=== PATIENT | male | born 1995 | race Two or more races ===

== ENCOUNTER 2024-12-06 19:24 | Emergency (ER) | payer MEDICAID, SELFPAY ==
[2024-12-06 19:25] VITALS: BMI 25.6
[2024-12-06 19:43] VITALS: BP 141/76; PULSE 87; RESP 18; TEMP 36.9; O2SAT 99
--- NOTE | 2024-12-06 19:54 | PD.EDRME ---
Rapid Medical Screening Exam RME Arrival date/time: 12/06/24 19:24 29-year-old male presents emergency department complaining of hematemesis that started earlier today. Patient reports is occasional drinker. Chief Complaint: Nausea/Vomiting/Diarrhea Time Seen by Provider: 12/06/24 19:46 Vital signs: Vital Signs Temperature 98.5 F 12/06/24 19:43 Pulse Rate 87 12/06/24 19:43 Respiratory Rate 18 12/06/24 19:43 Blood Pressure 141/76 H 12/06/24 19:43 Pulse Oximetry (%) 99 12/06/24 19:43 Oxygen Delivery Method Room Air 12/06/24 19:43 Vital signs reviewed by provider: Yes
--- NOTE | 2024-12-06 21:00 | EDNOTE_ITS ---
ED General RME/HPI General Chief complaint: Nausea/Vomiting/Diarrhea Stated complaint: VOMITING BLOOD X TODAY Time Seen by Provider: 12/06/24 19:46 Arrival date/time: 12/06/24 19:24 CC: Bright red vomitus HPI ongoing since 7 AM this morning multiple episodes patient denies any diarrhea black stools or bloody stools no prior history of same complaints. Patient states he is an occasional alcohol drinker no prior history of similar events states he has typical pain in the abdomen when vomiting but no persistent pain throughout the abdomen when not vomiting. Patient denies back pain shortness of breath fever chills. RME / HPI RME / HPI narrative: 12/06/24 19:24 29-year-old male presents emergency department complaining of hematemesis that started earlier today. Patient reports is occasional drinker. Related Data Previous Rx's ?Medication ?Instructions ?Recorded diphenhydramine HCl 25 mg capsule 25 mg PO TID #20 cap s 11/25/18 (Benadryl) methylprednisolone 4 mg tablets in 4 mg PO DAILY #21 t abs 11/25/18 a dose pack (Medrol (Angel)) famotidine 20 mg tablet 20 mg PO QDAY #30 tabs 12/06 ondansetron 4 mg disintegrating 4 mg PO Q8H #10 tabs 0 12/06/24 tablet Allergies Allergy/AdvReac Type Severity Reaction Status Date / Time No Known Allergies Allergy Verified 12/06/24 19:30 Review of Systems Review of Systems Narrative Review of Systems: GEN: No fever, no chills, no weight loss EYES: No discharge, no visual changes, no pain HEENT: No ear pain, no congestion, no sore throat PULM: No shortness of breath, no cough, no congestion CV: No chest pain, no dyspnea on exertion, no palpitations GI: + nausea, + vomiting, no diarrhea, no pain, no constipation : No frequency, no urgency, no dysuria MUSC/SKEL: No joint pain, no back pain SKIN: No rash PSYCH: No hallucinations, no depression HEME/LYMPH: No easy bleeding or bruising tendencies NEURO: No weakness, no headache Past Medical History Past Medical History CARDIAC: Negative Congestive Heart Failure RESPIRATORY: Negative Chronic Obstructive Pulmonary Disease (COPD) GENITOURINARY: Negative Renal Disease ENDOCRINE: Negative Diabetes Mellitus Type 1 or Diabetes Mellitus Type 2 Social History SMOKING STATUS: Current some day smoker ED Exam Narrative Physical exam: [General: In mild discomfort but not in any acute distress Head normocephalic HEENT: Within acceptable limits Neck is supple nontender Chest equal chest rise nontender to palpation Respiratory: Clear to auscultation no wheezes crackles or rubs CV: Rate rhythm is regular no murmurs rubs or clicks Abdomen is soft nontender no masses positive bowel sounds all 4 quadrants Back: No CVA tenderness no spinous process tenderness from cervical spine thoracic and lumbar spine Skin: Intact no petechiae rash induration ulceration or crepitus Extremities: Moving all extremity against resistance cap refill less than 2 seconds neurosensory intact Neuro: Awake alert oriented x3 Glascow coma 15 no focal deficits] Course Quality Measures none Orders Category Date Time Status Saline [Insert IV] NOW Care 12/06/24 20:[address] abdomen pelvis wo con Stat Exams 12/06/24 21:11 Completed Alcohol, Blood Medical Stat Lab 12/06/24 20:38 Completed CBC Stat Lab 12/06/24 20:38 Completed CMP [Comprehensive Metabolic Panel] Stat Lab 12/06/24 20:38 Completed Drug Screen,Urine Stat Lab 12/06/24 22:14 Received Lipase Stat Lab 12/06/24 20:38 Completed PT [Prothrombin Time with INR] Stat Lab 12/06/24 20:38 Completed PTT [Partial Thromboplastin Time] Stat Lab 12/06/24 20:38 Completed Urinalysis, C/S if Indicated Stat Lab 12/06/24 22:14 Completed Famotidine Inj [Pepcid Inj] Med 12/06/24 20:59 Discontinued 20 mg IVP X1 ONE Metoclopramide Inj [Reglan Inj] Med 12/06/24 19:54 Discontinued 10 mg IM X1 ONE Ondansetron Inj [Zofran Inj] Med 12/06/24 21:10 Discontinued 4 mg IV X1 ONE Ringers Lactated 1000 ml [Lactated Ringers] 1,000 ml Med 12/06/24 21:00 Discontinued IV 999 mls/hr Vital Signs Vital signs: Vital Signs Temperature 98.5 F 12/06/24 19:43 Pulse Rate 87 12/06/24 19:43 Respiratory Rate 18 12/06/24 19:43 Blood Pressure 141/76 H 12/06/24 19:43 Pulse Oximetry (%) 99 02/17/25 19:43 Oxygen Delivery Method Room Air 12/06/24 19:43 [facility] Patient data External records reviewed:: [facility] previous records Clinical information provided by:: patient Social determinants that could affect healthcare access:: none Patient has the following chronic illnesses:: None How is presenting disease/condition affected by chronic disease/condition?: u neffected by Evaluation data The following diagnostics were reviewed and interpreted by me:: lab results and radiology exam(s) Lab and/or radiology exams considered but not ordered:: EKG performed at 8 shows ventricular rate of 107 MN interval 132 QRS of 89 QTc 361 is sinus tachycardia. CBC shows a mild leukocytosis of 14.5 hemoglobin of 16.8 hematocrit of 48.8% Coags within acceptable limits CMP is no acute electrolyte imbalances renal impairment transaminitis or T. bili elevation. Lipase is normal urine is unremarkable CT of the abdomen is negative for any acute finding. Interpretation Summary: Patient has had no episodes of vomiting throughout his visit the emergency room and his H&H are normal. At this time patient be discharged home on famotidine and he is to stick to a bland diet if there is a worsening of symptoms he can follow-up with his primary care provider. Medications Medications considered but not ordered:: None Medication administrations:: Medication Administration History Discontinued Medications Famotidine (Famotidine Inj 10 Mg/Ml Vial 2 Ml) 20 mg IVP X1 ONE Stop: 12/06/24 21:00 Last Admin: 12/06/24 21:15 Dose: 20 mg Documented By: EF Lactated Ringer's (Lactated Ringers) 1,000 mls @ 999 mls/hr IV .Q1H1M ONE Stop: 12/06/24 22:00 Last Admin: 12/06/24 21:15 Dose: 999 mls/hr Documented By: EF Metoclopramide HCl (Metoclopramide Inj 5 Mg/Ml Vial 2 Ml) 10 mg IM X1 ONE; Protocol Stop: 12/06/24 19:55 Last Admin: 12/06/24 21:27 Dose: Not Given Documented By: EF Non-Admin Reason: Cancelled by Provider Ondansetron HCl (Ondansetron Inj 2 Mg/Ml Inj 2 Ml) 4 mg IV X1 ONE; Protocol Stop: 12/06/24 21:11 Last Admin: 12/06/24 21:17 Dose: 4 mg Documented By: EF None Consultations Consultation(s) initiated? (list below): No Diagnosis Differential Diagnosis ED Complaint MDM: Hematochezia hematemesis anemia Most likely diagnosis given after review of the tests above:: Hematemesis Admission Indicated Admission indicated?: not indicated Explain why admission is indicated or not indicated:: Stable for outpatient follow-up Admission Request Was there a request for admission?: No Disposition Plan Disposition Plan: Discharge Discharge Attestation Discharge Attestation: The patient and all family members were given an opportunity to ask questions and understood the discharge instructions. Discharge instructions specifically effects, indications for sooner follow up or return to the emergency department, and the expected course of current diagnosis. Patient condition: Stable Medical Decision Making Differential Diagnosis Differential Diagnosis: Hematochezia hematemesis anemia Lab Data 12/06/24 20:38 12/06/24 20:38 Labs: Lab Results 12/06/24 12/06/24 Range/Units 20:38 22:14 WBC 14.5 H (3.8-10.6) Thou/mm3 RBC 5.68 (4.50-5.90) Miln/mm3 Hgb 16.8 H (13.5-16.0) g/dL Hct 48.8 (41.0-53.0) % MCV 86 (80-100) fL MCH 29.6 (25.0-35.0) pg MCHC 34.4 (31.0-37.0) g/dl RDW Std Deviation 45.4 H (35.1-43.9) fL Plt Count 207 (140-440) Thou/mm3 Neut % (Auto) 83 H (37-80) % Lymph % (Auto) 11 (10-50) % Archuleta % (Auto) 6 (0-12) % Eos % (Auto) 0 (0-10) % Baso % (Auto) 0 (0-2.5) % Neut # (Auto) 12.0 H (1.8-7.7) Thou/mm3 Lymph # (Auto) 1.5 (1.0-4.8) Thou/mm3 Archuleta # (Auto) 0.9 H (0.0-0.8) Thou/mm3 Eos # (Auto) 0.0 (0.0-0.5) Thou/mm3 Baso # (Auto) 0.1 (0.0-0.2) Thou/mm3 Immature Gran # (Auto) 0.04 H (0.00-0.00) Thou/mm3 Absolute Nucleated RBC 0.00 (0.00-0.00) Thou/mm3 Immature Gran % 0 (0-0) % Nucleated RBC % 0 (0) /100 WBC PT 11.7 (9.0-12.2) Seconds INR 1.1 (0.9-1.3) APTT 25.5 (22.0-36.0) Seconds Sodium 143 (136-145) mMol/L Potassium 3.6 (3.4-5.1) mMol/L Chloride 104 (98-107) mMol/L Carbon Dioxide 24.8 (20.0-31.0) mMol/L Anion Gap 14 (7-16) BUN 18 (9-23) mg/dL Creatinine 1.1 (0.6-1.3) mg/dL Estim Creat Clear Calc 77.9 (>60) mL/min eGFR > 60 (60 - ) See Note BUN/Creatinine Ratio 16 (12-20) Ratio Glucose 92 (74-106) mg/dL Calculated Osmolality 286 (275-295) Calcium 10.8 H (8.3-10.6) mg/dL Corrected Calcium 10.8 H (8.5-10.1) mg/dL Total Bilirubin 1.0 (0.3-1.2) mg/dL AST 31 (0-34) U/L ALT 26 (10-49) U/L Alkaline Phosphatase 120 H (46-116) U/L Total Protein 9.0 H (5.7-8.2) gm/dL Albumin 5.7 H (3.5-5.0) gm/dL Globulin 3.3 (2.3-3.5) gm/dL Albumin/Globulin Ratio 1.7 (1.2-2.2) Lipase 25 (12-53) U/L Ur Collection Type Clean Catch Urine Color Yellow (Lt Yel-Yel) Urine Clarity Clear (Clear/Hazy) Urine pH 6.0 (5.0-7.0) Ur Specific Alfred 1.034 (1.001-1.035) Urine Protein 1+ A (Neg - Trace) Urine Glucose (UA) Negative (Negative) Urine Ketones 3+ A (Negative) Urine Blood Negative (Negative) Urine Nitrite Negative (Negative) Urine Bilirubin Negative (Negative) Urine Urobilinogen (Auto) Negative (0.0-1.0) mg/dL Ur Leukocyte Esterase Negative (Negative) Urine RBC 1 (0-3) /hpf Urine WBC 4 (0-5) /hpf Ur Squamous Epith Cells < 1 (0-5) /hpf Urine Bacteria None (None) Hyaline Casts < 1 (0-1) /hpf Ur Culture Indicated? Not Indicated Ethyl Alcohol < 3.0 (0-10.0) mg/dL Discharge Plan Plan Patient Disposition: HOME (Self Care) Patient condition on transfer: Stable Prescriptions/Referrals Prescriptions/Med Rec: New ondansetron 4 mg tablet,disintegrating 4 mg PO Q8H Qty: 10 0RF famotidine 20 mg tablet 20 mg PO QDAY Qty: 30 0RF No Action diphenhydramine HCl [Benadryl] 25 mg capsule 25 mg PO TID Qty: 20 0RF methylprednisolone [Medrol (Angel)] 4 mg tablets,dose pack 4 mg PO DAILY Qty: 21 0RF Problem List Clinical Impression: Hematemesis Patient/Caregiver Discharge Instructions Other Activity Instructions:: We have no acute finding and your blood count is normal at this time we will discharge you home. Education Materials: Anatomy of the Digestive System Print Language: Swiss Stand Alone Forms: [employer] Award Info., Patient Portal Info Letter PA/CAMPUS AIDE Supervising Physician PA/CAMPUS AIDE Supervising Physician: Alejandro Daniels ENP
[2024-12-06 21:06] LABS: Basophils # (Auto) 0.1 Thou/mm3 (0.0-0.2); Basophils % (Auto) 0 % (0-2.5); Eosinophils % (Auto) 0 % (0-10); Hematocrit 48.8 % (41.0-53.0); Hemoglobin 16.8 g/dL (13.5-16.0); Immature Granulocytes % (Auto) 0 % (0-0); Immature Granulocytes Auto 0.04 Thou/mm3 (0.00-0.00); Lymphocytes # (Auto) 1.5 Thou/mm3 (1.0-4.8); Lymphocytes % (Auto) 11 % (10-50); Mean Corpuscular HGB Conc 34.4 g/dl (31.0-37.0); Mean Corpuscular Hemoglobin 29.6 pg (25.0-35.0); Mean Corpuscular Volume 86 fL (80-100); Monocytes # (Auto) 0.9 Thou/mm3 (0.0-0.8); Monocytes % (Auto) 6 % (0-12); Neutrophils % (Auto) 83 % (37-80); Nucleated Red Blood Cell % 0 /100 WBC (0); Platelet Count 207 Thou/mm3 (140-440); RDW Standard Deviation 45.4 fL (35.1-43.9); Red Blood Count 5.68 Miln/mm3 (4.50-5.90); White Blood Count 14.5 Thou/mm3 (3.8-10.6)
--- NOTE | 2024-12-06 21:11 | XR_ITS ---
Examination: CT abdomen and pelvis without contrast. Coronal 3-D reconstructions. Sagittal 2-D reconstructions. Date and time of exam:December 06, 2024 2127 hrs. Indications: Hemoptysis today CTDI: vol (mGy): 5.35 DLP: (mGycm): 305 Technique: Axial images of the abdomen have been obtained, 3 mm slice thickness Intravenous contrast material has not been administered. Low dose protocols were performed. One or more of the following dose reduction techniques were used; automated exposure control, adjustment of the mA and/or KV according to patient size, use of iterative reconstruction technique. Findings: Fatty liver, no focal liver lesions No gallstones Spleen is not enlarged No pancreatic or adrenal mass No renal or ureteral calculi, no hydronephrosis Aorta normal size No bowel obstruction Normal appendix No diverticulitis Normal prostate Normal urinary bladder Impression: No acute process in the abdomen or pelvis
[2024-12-06] MEDS: FAMOTIDINE INJ 10 MG/ML VIAL 2 ML 20 MG IVP (21:15)
[2024-12-06] MEDS: RINGERS LACTATED 1000 ML 1,000 ML 999 ML IV (21:15)
[2024-12-06] MEDS: ONDANSETRON INJ 2 MG/ML INJ 2 ML 4 MG IV (21:17)
[2024-12-06 21:21] LABS: INR 1.1 (0.9-1.3); Partial Thromboplastin Time 25.5 Seconds (22.0-36.0); Prothrombin Time 11.7 Seconds (9.0-12.2)
[2024-12-06 21:27] LABS: Alanine Aminotransferase 26 U/L (10-49); Albumin, Serum 5.7 gm/dL (3.5-5.0); Albumin/Globulin Ratio 1.7 (1.2-2.2); Alcohol, Blood Medical < 3.0 mg/dL (0-10.0); Alkaline Phosphatase 120 U/L (46-116); Anion Gap 14 (7-16); Aspartate Amino Transferase 31 U/L (0-34); BUN/Creatinine Ratio 16 Ratio (12-20); Blood Urea Nitrogen 18 mg/dL (9-23); Calcium 10.8 mg/dL (8.3-10.6); Calcium (Corrected) 10.8 mg/dL (8.5-10.1); Carbon Dioxide 24.8 mMol/L (20.0-31.0); Chloride 104 mMol/L (98-107); Creatinine (Component) 1.1 mg/dL (0.6-1.3); Estimated Creatinine Clearance 77.9 mL/min (>60); Globulin 3.3 gm/dL (2.3-3.5); Glucose 92 mg/dL (74-106); Lipase 25 U/L (12-53); Osmolality,Calculated 286 (275-295); Potassium 3.6 mMol/L (3.4-5.1); Sodium 143 mMol/L (136-145); eGFR > 60 See Note
[2024-12-06 22:23] LABS: Collection Type, Urine Clean Catch
[2024-12-06 22:48] LABS: Bilirubin,Urine Negative (Negative); Blood,Urine Negative (Negative); Clarity,Urine Clear (Clear/Hazy); Color,Urine Yellow (Lt Yel-Yel); Culture Indicated,Urine Not Indicated; Glucose, Urine Negative (Negative); Hyaline Casts,Urine < 1 /hpf (0-1); Ketones,Urine 3+ (Negative); Leukocyte Esterase,Urine Negative (Negative); Nitrite,Urine Negative (Negative); Protein,Urine 1+ (Neg - Trace); RBC,Urine 1 /hpf (0-3); Specific Gravity,Urine 1.034 (1.001-1.035); Squamous Epithelial Cell,Urine < 1 /hpf (0-5); Urobilinogen,Urine Negative mg/dL (0.0-1.0); WBC,Urine 4 /hpf (0-5)
[2024-12-06 22:56] LABS: Amphetamine/Methamp Scrn,U Negative (Negative); Barbiturate Screen,Urine Negative (Negative); Benzodiazepines Screen,Urine Negative (Negative); Benzoylecgonine Screen, Ur Negative (Negative); Fentanyl Screen,Urine Negative (Negative); Opiate Screen,Urine Negative (Negative); THC Screen,Urine Positive (Negative)
[2024-12-06 23:14] VITALS: BP 114/65; PULSE 67; RESP 15; TEMP 36.9; O2SAT 99
== END 2024-12-06 23:15 | disposition home or self-care (01) ==
LOC: SERX 23:00
PROVIDERS: Emergency Provider Emergency Medicine
DX: K92.0 Hematemesis (principal)
CPT/HCPCS: 36415; 74176; 80053; 80307; 80320; 81001; 83690; 85025; 85610; 85730; 96361; 96374; 96375; J2405; J3490; J7120; G0480